=== PATIENT | female | born 1945 ===

== ENCOUNTER 2021-12-27 08:00 | Day surgery (SDC) | payer OTHER | END 2021-12-27 12:00 | disposition home or self-care (01) | LOC: AMB-ENDOS 08:00 | PROVIDERS: ATTEND Surgery | DX: K63.5 Polyp of colon (principal); Z86.010 Personal history of colon polyps; K57.30 Diverticulosis of large intestine without perforation or abscess without bleeding; Z20.822 Contact with and (suspected) exposure to COVID-19 ==